=== PATIENT | female | born 1975 | race Two or more races ===

== ENCOUNTER 2016-05-11 23:22 | Inpatient (IN) | payer OTHER ==
[2016-05-12] MEDS ORDERED: OXYTOCIN IN LR 500 ML IV ONE
[2016-05-12] MEDS ORDERED: IV START KIT ONE (00:08)
[2016-05-12] MEDS ORDERED: OXYTOCIN 10 UNITS/ML VIAL ONE (00:09)
[2016-05-12] MEDS ORDERED: LIDOCAINE 1% (PRES FREE) 30 ML VIAL ONE (00:09)
[2016-05-12] MEDS ORDERED: MINERAL OIL 25 ML BOT ONE (00:09)
[2016-05-12] MEDS ORDERED: LIDOCAINE Viscous 2% 15 ML UDCUP ONE (00:09)
[2016-05-12] MEDS ORDERED: PUMP TUBING ONE (00:09)
[2016-05-12] MEDS ORDERED: EPIDURAL PUMP SET ONE (00:10)
[2016-05-12] MEDS ORDERED: FENTANYL/ROPIVACAINE EPIDURAL 250 ML EP ONE (00:10)
[2016-05-12] MEDS: LACTATED RINGERS 1,000 ML IV PRN ×2 (00:23→01:01)
[2016-05-12 00:40] LABS: HEMATOCRIT 38.1 % (37.0-47.0); MEAN CELL VOLUME 91.4 fl (81.0-99.0); MEAN CORPUSCULAR HEMOGLOBIN 31.2 pg (27.0-31.0); MEAN CORPUSCULAR HGB CONC 34.1 g/dl (33.0-37.0); RED CELL DISTRIBUTION WIDTH 15.9 % (11.5-14.5)
[2016-05-12] MEDS ORDERED: FENTANYL 100 MCG/2 ML VIAL IV ONE (00:45)
[2016-05-12 00:52] VITALS: BMI 22.1
[2016-05-12] MEDS ORDERED: LIDOCAINE 2% (PRES FREE) 5 ML VIAL ONE (00:56)
[2016-05-12] MEDS ORDERED: EPIDURAL PROCEDURE TRAY ONE (00:56)
[2016-05-12] MEDS ORDERED: FENTANYL/ROPIVACAINE EPIDURAL 250 ML EP SCH (01:00)
[2016-05-12] MEDS ORDERED: DIPHENHYDRAMINE HCL 50 MG/1 ML VIAL IV PRN (02:11)
[2016-05-12] MEDS ORDERED: METOCLOPRAMIDE HCL 5 MG/ML 2ML VIAL IV PRN (02:11)
[2016-05-12] MEDS ORDERED: NALOXONE HCL 0.4 MG/ML VIAL IV PRN (02:11)
[2016-05-12] MEDS ORDERED: EPHEDRINE SULFATE 50 MG/ML 1ML VIAL IV PRN (02:11)
[2016-05-12] MEDS ORDERED: SODIUM CHLORIDE 0.9% 500 ML IV PRN (02:11)
[2016-05-12] MEDS ORDERED: LACTATED RINGERS 500 ML IV PRN (02:11)
[2016-05-12] MEDS ORDERED: NALBUPHINE HCL 20 MG/ML AMP IV PRN (02:11)
[2016-05-12] MEDS ORDERED: ONDANSETRON 4 MG/2ML 2 ML VIAL IV PRN (02:11)
[2016-05-12] MEDS: LACTATED RINGERS 1,000 ML IV SCH ×2 (03:11→03:27)
--- NOTE | 2016-05-12 03:29 | PCMAN ---
OB Admission Note - History : 4 Term: 3 : 0 Abortions (S&E): 0 Livin Gestational Age (weeks): 39 Days (#/7): 4 Admit Cervical Dilation:: 5 Admit Cervical Effacement (%):: 95 Admit Station:: -1 Admit Presentaton:: Vertex Membrane Status: Intact Labor Onset (Date): 05/11/16 Labor Onset (Time): 18:00 Contractions: Yes Contraction Frequency:: 5-7 Heart Rate:: 120 Summary of Course:: S: 40 y/o female @ 39 4/7 wks GA w/ an MADDISON of 05/15/16 by an LMP of 08/09/15 c/w 21wk U/S. complicated by AMA and severe anemia. Non invasive testing was negative for aneuploidy. She received IV Iron transfusions for the treatment of her severe anemia and her last Iron level was normal at 62 with an H/H of 11.0/34.2. Pt. presented to L&D with c.c. of worsening ctxs. since 1800 today. She denied LOF. +FM. NO ROBLEDO"s or visual changes. - Labs Blood Type: O (+) positive (Antibody ngtv) Hct/Hgb:: 11.0/34.2 Rubella Status: Immune GBS Status: Negative Abnormal Labs: Other (elevated 1hr 155 but normal 3hr. ) - Physical Exam General: Afebrile Neurological: Alert HEENT: EOMI, Mucous membr. moist/pink Lungs: Clear to Auscultation Bilaterally, Normal Air Movement Cardiovascular: Regular Rate and Rhythm, Normal S1, Normal S2 Genitourinary: Normal Female Genitalia (7/100/0. Palpable divet over the anterior cervix @ 11 o'clock c/w small laceration) Skin: Normal Color, Warm - Problems (1) Normal labor Status: Acute Code: [id number]/Plan: 40 y/o @ 39 4/7 wks GA in active labor. S/P epidural sleeping comfortably. Some vaginal bleeding most likely cause is small divet in anterior cervix, monitor closely. Continuos monitoring. Anticipate .
[2016-05-12] MEDS ORDERED: IBUPROFEN 600 MG TABLET PO PRN (08:04)
[2016-05-12] MEDS ORDERED: LANOLIN 50 APPLIC/7G TUBE TP PRN (08:04)
[2016-05-12] MEDS ORDERED: BENZOCAINE/MENTHOL 60 APPLIC/BOT TP PRN (08:04)
[2016-05-12] MEDS ORDERED: DOCUSATE SODIUM 100 MG CAPSULE PO PRN (08:04)
[2016-05-12] MEDS ORDERED: FLU VACC 2016-17 (36MO-64Y)/PF 60 MCG/0.5 ML SYRINGE IM V ONE (08:10)
--- NOTE | 2016-05-12 08:49 | PCMDEL ---
Delivery Note - Labor 1st stage (hr/min):: 2nd stage (hr/min):: 05/24 3rd stage (hr/min):: 006 Total (hr/min):: 12/07 - Delivery Delivery (Date): 05/12/16 Delivery (Time): 07:19 Infant Gender: Male Weight: 3.685 kg Length: 6.55 m Presentation: Cephalic Position: OA Umbilical Cord: 3 Vessel Delayed Cord Clamping:: > 3 min 1 Minute Total: 9 5 Minute Total: 9 Placenta:: intact/normal EBL:: 250mL Perineum:: 2nd degree ML tear Suture:: 2-0 and 3-0 Vicryl Anesthesia/Meds:: LEP Length ROM:: 03/08
[2016-05-12] MEDS: HYDROCODONE/ACETAMINOPHEN 5/325MG TABLET PO PRN ×2 (19:22→23:46)
[2016-05-13 07:02] LABS: HEMATOCRIT 32.2 % (37.0-47.0); HEMOGLOBIN 10.9 gm/l (12.0-16.0)
--- NOTE | 2016-05-13 08:03 | PDOC44 ---
- Subjective Day: 1 Reports Flatus, Reports Pain Tolerable, Reports , Reports Lochia Light - Objective Temp Pulse Resp BP Pulse Ox 98.2 F 86 16 98/49 05/13/16 02:12 05/13/16 02:12 05/13/16 02:12 05/13/16 02:12 Lab Results 05/13/16 06:10 Hgb 10.9 L D Hct 32.2 L Current Medications Generic Name Dose Route Start Last Admin Trade Name Keenanq PRN Reason Stop Dose Admin Acetaminophen/Hydrocodone Bitart 1 - 2 tab 05/12/16 08:04 05/12/16 23:46 [place]ham 5/325 PO 1 tab Q4H PRN Administration Pain (Moderate) Docusate Sodium 100 mg 05/12/16 08:04 Colace PO DAILY PRN Comfort Emollient Ointment 1 applic 05/12/16 08:04 [id number]-T-[id number] TP PRN PRN sore nipples Ropivacaine/Fentanyl/NS 250 mls @ 0 mls/hr 05/12/16 01:00 05/12/16 01:33 Fentanyl 2 Mcg/Ml + Ropivacaine 0.125% Ep Bag EP 10 mls/hr EPI ELVIRA Administration Protocol Per Protocol Ibuprofen 600 mg 05/12/16 08:04 05/12/16 15:17 Motrin PO 600 mg Q6H PRN Administration Pain (Mild) Sodium Chloride 10 ml 05/12/16 08:04 05/12/16 23:22 Normal Saline 10ml Flush IV 10 ml PRN PRN Administration IV Flush - Physical Exam General: Afebrile Psych/Mental Status: Mood/Affect Appropriate, Judgment/Insight Intact, Bonding Well Neurological: Alert, Normal Speech HEENT: EOMI, Mucous membr. moist/pink Lungs: Clear to Auscultation Bilaterally, Normal Air Movement Cardiovascular: Regular Rate and Rhythm, Normal S1, Normal S2 Fundus: Firm, Below Umbilicus Abdomen: Normal Bowel Sounds Skin: Normal Color - Problems:Assessment/Plan (1) care and examination Status: AcuteAssessment/Plan: continue routine NB care continue to support BF Disposition: Anticipate DC Home Tomorrow
[2016-05-13 09:24] VITALS: BP 92/42
[2016-05-13] MEDS ORDERED: LACTATED RINGERS 1,000 ML ONE (09:48)
[2016-05-13] MEDS ORDERED: LACTATED RINGERS 1,000 ML IV SCH (10:00)
--- NOTE | 2016-05-13 11:17 | PDOC39B ---
Hospital Course: ADMIT DATE: 05/12/16 DISCHARGE DATE: 05/13/16 ADMISSION DIAGNOSES: AMA PROCEDURES: HISTORY OF PRESENT ILLNESS: 40 year old G4 T3 L3 at 39 weeks 4 days presenting with worsening ctxs. HOSPITAL COURSE: The patient presented with worsening ctxs. See delivery summary. By day of discharge the patient was ambulating, eating, voiding, and passing flatus without difficulty. Pain was controlled and lochia was appropriate. She was with out difficulty. - Physical Exam Vital Signs: Temp Pulse Resp BP Pulse Ox 98.5 F 86 16 92/42 05/13/16 09:21 05/13/16 09:21 05/13/16 09:21 05/13/16 09:21 General: Afebrile Psych/Mental Status: Mood/Affect Appropriate Neurological: Alert HEENT: Mucous membr. moist/pink Lungs: Clear to Auscultation Bilaterally, Normal Air Movement Cardiovascular: Regular Rate and Rhythm, Normal S1, Normal S2 Fundus: Firm, Below Umbilicus Skin: Normal Color - Discharge Diagnosis (1) care and examination Status: AcuteAssessment/Plan: continue PP care mildly anemic encouraged to eat an Iron rich diet F/U in 6wks for PP tubal - Discharge Plan Disposition: Home Follow-Up: Nancy Branham MD [Primary Care Provider] - In 6 weeks (call clinic and make post appt. )
== END 2016-05-13 17:32 | disposition home or self-care (01) | DRG 775 ==
LOC: FBCOUT 23:22 → FBC 23:22 → FBCOUT 05-12 → FBC 05-12 21:41
PROVIDERS: ADMIT Family Medicine; ATTEND Family Medicine
PROC: 10E0XZZ Delivery of Products of Conception, External Approach (ICD-10-PCS; principal; 2016-05-12)
PROC: 0KQM0ZZ Repair Perineum Muscle, Open Approach (ICD-10-PCS; 2016-05-12)
PROC: 4A1H7CZ Monitoring of Products of Conception, Cardiac Rate, Via Natural or Artificial Opening (ICD-10-PCS; 2016-05-12)
DX: O70.1 Second degree perineal laceration during delivery (principal); Z37.0 Single live birth; O09.43 Supervision of pregnancy with grand multiparity, third trimester; Z3A.39 39 weeks gestation of pregnancy; O09.523 Supervision of elderly multigravida, third trimester